=== PATIENT | female | born 1950 | race Asian ===

== ENCOUNTER 2018-01-10 12:48 | Outpatient (CLI) | payer OTHER | END 2018-01-10 22:26 | disposition home or self-care (01) | LOC: RAD 12:48 | DX: M54.2 Cervicalgia (principal) ==

== ENCOUNTER 2018-02-06 11:20 | Outpatient (CLI) | payer OTHER ==
[2018-02-06 12:41] LABS: POTASSIUM 3.8 mmol/L (3.6-5.2)
== END 2018-02-06 19:35 | disposition home or self-care (01) ==
LOC: LABW 11:20
PROVIDERS: Family Medicine
DX: E66.8 Other obesity (principal); Z98.84 Bariatric surgery status; D51.8 Other vitamin B12 deficiency anemias
CPT/HCPCS: 36415; 80053; 82607; 82746